=== PATIENT | female | born 1970 | race African-American/Black ===

== ENCOUNTER 2016-12-07 07:26 | Emergency (ER) | payer OTHER ==
[~2016-12-07] VITALS: Ht 172.7 cm; Wt 167.0 kg
[~2016-12-07 07:26] MED LIST: ALBU17AE26; FLUT1DIS3 IH; MONT10TA21 PO; RABE20TA17 PO
[2016-12-07] MEDS ORDERED: SODIUM CHLORIDE 0.9% 1,000 ML IV ONE (09:13)
[2016-12-07] MEDS ORDERED: ONDANSETRON HCL 4MG/2ML VIAL IV STA (09:13)
[2016-12-07] MEDS ORDERED: MECLIZINE 25MG TABLET PO ONE (09:15)
[2016-12-07 09:37] LABS: BASOPHILS % 1.4 % (0.0-2.0); EOSINOPHILS % 5.7 % (0.0-5.0); HEMATOCRIT. 37.3 % (36.0-48.0); HEMOGLOBIN. 12.1 g/dL (12.0-16.0); LYMPHOCYTES % 18.8 % (20.0-50.0); MEAN CORPUSCULAR HEMOGLOBIN 26.9 pg (28.0-32.0); MEAN PLATELET VOLUME 9.5 fl (7.4-10.4); NEUTROPHILS % 67.1 % (40.0-76.0); PLATELET 218 x1000/uL (130-400); RED CELL DISTRIBUTION WIDTH 15.7 % (11.6-14.6)
[2016-12-07 09:43] LABS: PROTHROMBIN TIME 10.4 sec (9.4-11.6)
[2016-12-07 09:53] LABS: CARBON DIOXIDE 31 mEq/L (21-32); CHLORIDE 104 mEq/L (98-107); TROPONIN I 0.05 ng/mL (0.00-0.04)
[2016-12-07 11:48] VITALS: BP 116/68
== END 2016-12-07 12:39 | disposition home or self-care (01) ==
LOC: ER 09:15
DX: H81.399 Other peripheral vertigo, unspecified ear (principal); J45.909 Unspecified asthma, uncomplicated; E11.9 Type 2 diabetes mellitus without complications; R51 Headache; R11.2 Nausea with vomiting, unspecified; Z98.890 Other specified postprocedural states
CPT/HCPCS: 36415; 70450; 71010; 80053; 82962; 83880; 84484; 85025; 85610; 93005; 96361; 96374; 99285; J2405; J7030; Z7610; J8597

== ENCOUNTER 2016-12-12 10:27 | Inpatient (IN) | payer OTHER ==
[~2016-12-12] VITALS: Ht 157.5 cm; Wt 162.4 kg
[2016-12-12] MEDS ORDERED: SODIUM CHLORIDE 0.9% 1,000 ML IV ONE (12:13)
[2016-12-12 12:31] LABS: EOSINOPHILS % 4.2 % (0.0-5.0); HEMATOCRIT. 35.8 % (36.0-48.0); HEMOGLOBIN. 11.7 g/dL (12.0-16.0); LYMPHOCYTES % 18.6 % (20.0-50.0); MEAN CORPUSCULAR HEMOGLOBIN 26.9 pg (28.0-32.0); MEAN CORPUSCULAR VOLUME 82.4 fL (81.0-99.0); MEAN PLATELET VOLUME 9.9 fl (7.4-10.4); NEUTROPHILS % 70.2 % (40.0-76.0); PLATELET 237 x1000/uL (130-400); RED BLOOD CELL COUNT 4.34 mill/uL (4.2-5.4); RED CELL DISTRIBUTION WIDTH 15.9 % (11.6-14.6)
[2016-12-12 12:38] LABS: PARTIAL THROMBOPLASTIN TIME 28.5 sec (23.4-31.0); PROTHROMBIN TIME 10.5 sec (9.4-11.6)
[2016-12-12 12:42] LABS: CARBON DIOXIDE 29 mEq/L (21-32); CHLORIDE 107 mEq/L (98-107)
[2016-12-12 12:50] LABS: CREATINE KINASE MB FRACTION 1.3 ng/mL (0.5-3.6); TROPONIN I 0.06 ng/mL (0.00-0.04)
[2016-12-12 12:53] LABS: HCG SCREEN NEGATIVE
[2016-12-12 12:56] LABS: *AMPHETAMINES SCREEN URINE NEGATIVE (NEGATIVE); *BARBITURATES SCREEN URINE NEGATIVE (NEGATIVE); *BENZODIAZEPINES SCREEN URINE NEGATIVE (NEGATIVE); *COCAINE SCREEN URINE NEGATIVE (NEGATIVE); CANNABINOID URINE SCREEN NEGATIVE (NEGATIVE); METHADONE URINE SCREEN NEGATIVE (NEGATIVE); OPIATES URINE SCREEN NEGATIVE (NEGATIVE); PHENCYCLIDINE URINE SCREEN NEGATIVE (NEGATIVE)
[2016-12-12 16:30] VITALS: BP 108/54
[2016-12-12 17:32] VITALS: BP 108/54
[2016-12-12] MEDS ORDERED: ACETAMINOPHEN 325MG TABLET PO PRN (17:45)
[2016-12-12] MEDS ORDERED: MAGNESIUM/ALUMINUM HYDROXIDE/SIMETHICONE 30ML UDC PO PRN (17:45)
[2016-12-12] MEDS ORDERED: CLONIDINE 0.1MG TABLET PO PRN (17:45)
[2016-12-12] MEDS ORDERED: NA PHOS,M-B/NA PHOS,DI-BA ENEMA 118ML PR PRN (17:45)
[2016-12-12] MEDS ORDERED: ONDANSETRON HCL 4MG/2ML VIAL IV PRN (17:45)
[2016-12-12] MEDS ORDERED: ACETAMINOPHEN 650MG/20.3ML UDC GT PRN (17:45)
[2016-12-12] MEDS ORDERED: ACETAMINOPHEN 650MG SUPP PR PRN (17:45)
[2016-12-12] MEDS: HYDROCODONE/ACETAMINOPHEN 5/325MG TABLET PO PRN (18:08)
[2016-12-12] MEDS ORDERED: BECL8.7A6 IH (18:14)
[2016-12-12] MEDS ORDERED: SEREVENT DISKUS INH (18:17)
[2016-12-12] MEDS ORDERED: NAPR-681 PO (18:18)
[2016-12-12] MEDS ORDERED: GLIM4TAB2 PO (18:19)
[2016-12-12] MEDS ORDERED: LOSA1TAB37 PO (18:19)
[2016-12-12] MEDS ORDERED: PIOG30TA10 PO (18:20)
[2016-12-12] MEDS: SODIUM CHLORIDE 0.9% 1,000 ML IV SCH (19:00)
[2016-12-12 20:00] VITALS: BP_SYST 104; BP_SYST 133; BP_SYST 141; BP_DIAS 59; BP_DIAS 88; BP_DIAS 89
[2016-12-12 20:33] LABS: CLARITY URINE CLEAR (CLEAR); COLOR URINE YELLOW (YELLOW); GLUCOSE URINE NEGATIVE (NEGATIVE); KETONES URINE NEGATIVE (NEGATIVE); LEUKOCYTE ESTERASE URINE NEGATIVE (NEGATIVE); NITRITE URINE NEGATIVE (NEGATIVE); OCCULT BLOOD URINE NEGATIVE (NEGATIVE); PH URINE 5.5 (4.5-8.0); PROTEIN URINE NEGATIVE (NEGATIVE); SPECIFIC GRAVITY URINE 1.026 (1.005-1.030)
[2016-12-12 20:40] LABS: *AMPHETAMINES SCREEN URINE NEGATIVE (NEGATIVE); *BARBITURATES SCREEN URINE NEGATIVE (NEGATIVE); *BENZODIAZEPINES SCREEN URINE NEGATIVE (NEGATIVE); *COCAINE SCREEN URINE NEGATIVE (NEGATIVE); CANNABINOID URINE SCREEN NEGATIVE (NEGATIVE); METHADONE URINE SCREEN NEGATIVE (NEGATIVE); PHENCYCLIDINE URINE SCREEN NEGATIVE (NEGATIVE)
[2016-12-12 20:41] LABS: OPIATES URINE SCREEN PRESUMTIVE POSITIVE (NEGATIVE)
[2016-12-12] MEDS: SODIUM CHLORIDE 0.9% INJ 3ML FLUSH IVF SCH (21:56)
[2016-12-12] MEDS: IPRATROPIUM/ALBUTEROL 0.5-3(2.5)MG/3ML NEB INH PRN (22:15)
[2016-12-12 23:01] LABS: TROPONIN I 0.05 ng/mL (0.00-0.04)
[2016-12-13] VITALS: BP 129/71
[2016-12-13] MEDS ORDERED: DEXTROSE 50% WATER 50ML SYRINGE IV PRN (00:15)
[2016-12-13 04:00] VITALS: BP 120/62
[2016-12-13] MEDS: HYDROCODONE/ACETAMINOPHEN 5/325MG TABLET PO PRN ×2 (04:33→12:58)
[2016-12-13] MEDS: ALBUTEROL (0.083%) 2.5MG/3ML NEB HHN SCH ×4 (04:40→21:15)
[2016-12-13] MEDS: SODIUM CHLORIDE 0.9% INJ 3ML FLUSH IVF SCH ×3 (06:04→21:30)
[2016-12-13] MEDS: PANTOPRAZOLE 40MG DR TABLET PO SCH (06:04)
[2016-12-13] MEDS: SODIUM CHLORIDE 0.9% 1,000 ML IV SCH ×2 (06:05→19:15)
[2016-12-13] MEDS: BLOOD SUGAR DIAGNOSTIC STRIP TEST SCH ×4 (06:05→21:26)
[2016-12-13 06:11] LABS: CARBON DIOXIDE 27 mEq/L (21-32); CHLORIDE 109 mEq/L (98-107); CREATINE KINASE 123 IU/L (26-192); HDL CHOLESTEROL 26 mg/dL (40-59); LDL CHOLESTEROL 77 mg/dL (5-100); TROPONIN I 0.05 ng/mL (0.00-0.04)
[2016-12-13 06:15] LABS: BASOPHILS % 1.5 % (0.0-2.0); EOSINOPHILS % 5.1 % (0.0-5.0); HEMATOCRIT. 32.9 % (36.0-48.0); HEMOGLOBIN. 10.7 g/dL (12.0-16.0); LYMPHOCYTES % 23.2 % (20.0-50.0); MEAN CORPUSCULAR HEMOGLOBIN 27.1 pg (28.0-32.0); MEAN PLATELET VOLUME 9.8 fl (7.4-10.4); MONOCYTES % 8.8 % (2.0-8.0); NEUTROPHILS % 61.4 % (40.0-76.0); PLATELET 216 x1000/uL (130-400); RED BLOOD CELL COUNT 3.96 mill/uL (4.2-5.4); RED CELL DISTRIBUTION WIDTH 15.5 % (11.6-14.6)
[2016-12-13] MEDS: INSULIN LISPRO 100 UNITS/ML SUBCUT SCH ×4 (06:16→21:00)
[2016-12-13] MEDS: GLIMEPIRIDE 4MG TABLET PO SCH (06:33)
[2016-12-13] MEDS: BUDESONIDE 0.5MG/2ML NEB HHN SCH ×2 (08:16→21:15)
[2016-12-13 08:42] VITALS: BP 129/72
[2016-12-13] MEDS ORDERED: MEDICATION NOT ON FORMULARY EA (Losartan/Hydrochlorothiazide (Losartan-Hctz 100-25 Mg Ta PO SCH (09:00)
[2016-12-13] MEDS ORDERED: BECLOMETHASONE DIPROPIONATE IH SCH (09:00)
[2016-12-13] MEDS ORDERED: NAPROXEN 500MG TABLET PO PRN (09:00)
[2016-12-13] MEDS ORDERED: SEREVENT INH SCH (09:00)
[2016-12-13] MEDS: PIOGLITAZONE 30MG TABLET PO SCH (09:29)
[2016-12-13] MEDS: HYDROCHLOROTHIAZIDE 25MG TABLET PO SCH (09:29)
[2016-12-13] MEDS: LOSARTAN POTASSIUM 100 MG TABLET PO SCH (09:30)
[2016-12-13] MEDS ORDERED: CLONIDINE 0.1MG TABLET PO PRN (11:30)
[2016-12-13] MEDS ORDERED: MECLIZINE 25MG TABLET PO PRN (11:30)
[2016-12-13 12:30] VITALS: BP_SYST 135; BP_SYST 142; BP_SYST 90; BP_DIAS 66; BP_DIAS 82; BP_DIAS 98
[2016-12-13 16:47] VITALS: BP 132/81
[2016-12-13] MEDS: MONTELUKAST SODIUM 10MG TABLET PO SCH (18:15)
[2016-12-13] MEDS: MECLIZINE 12.5MG TABLET PO SCH ×2 (18:15→21:27)
[2016-12-13] MEDS: CEFTRIAXONE 1 G PREMIX 50 ML IV SCH (18:16)
[2016-12-13] MEDS: PSEUDOEPHEDRINE HCL 30MG TABLET PO SCH (18:16)
[2016-12-13 20:00] VITALS: BP_SYST 121; BP_SYST 127; BP_SYST 133; BP_DIAS 69; BP_DIAS 86; BP_DIAS 89
[2016-12-13] MEDS: FLUTICASONE PROPIONATE 50MCG/SPRAY BOTTLE BOTHNSTRLS SCH (21:27)
[2016-12-14] VITALS: BP 118/75
[2016-12-14] MEDS: ALBUTEROL (0.083%) 2.5MG/3ML NEB HHN SCH ×4 (01:03→20:27)
[2016-12-14 04:00] VITALS: BP 131/68
[2016-12-14] MEDS: MECLIZINE 12.5MG TABLET PO SCH ×2 (05:56→14:07)
[2016-12-14] MEDS: PANTOPRAZOLE 40MG DR TABLET PO SCH (05:56)
[2016-12-14 06:09] LABS: BASOPHILS % 1.3 % (0.0-2.0); EOSINOPHILS % 4.7 % (0.0-5.0); HEMATOCRIT. 31.8 % (36.0-48.0); HEMOGLOBIN. 10.6 g/dL (12.0-16.0); LYMPHOCYTES % 22.4 % (20.0-50.0); MEAN CORPUSCULAR HEMOGLOBIN 27.2 pg (28.0-32.0); MEAN PLATELET VOLUME 9.8 fl (7.4-10.4); MONOCYTES % 6.9 % (2.0-8.0); NEUTROPHILS % 64.7 % (40.0-76.0); PLATELET 207 x1000/uL (130-400); RED BLOOD CELL COUNT 3.88 mill/uL (4.2-5.4); RED CELL DISTRIBUTION WIDTH 15.4 % (11.6-14.6)
[2016-12-14] MEDS: SODIUM CHLORIDE 0.9% INJ 3ML FLUSH IVF SCH ×3 (06:13→21:49)
[2016-12-14 06:28] LABS: CARBON DIOXIDE 27 mEq/L (21-32); CHLORIDE 105 mEq/L (98-107)
[2016-12-14 06:37] LABS: CREATINE KINASE 126 IU/L (26-192); CREATINE KINASE MB FRACTION 0.8 ng/mL (0.5-3.6); HDL CHOLESTEROL 27 mg/dL (40-59); LDL CHOLESTEROL 75 mg/dL (5-100); TROPONIN I 0.05 ng/mL (0.00-0.04)
[2016-12-14] MEDS: BLOOD SUGAR DIAGNOSTIC STRIP TEST SCH ×4 (06:45→21:35)
[2016-12-14] MEDS: INSULIN LISPRO 100 UNITS/ML SUBCUT SCH ×4 (06:46→21:00)
[2016-12-14] MEDS: GLIMEPIRIDE 4MG TABLET PO SCH (06:46)
[2016-12-14] MEDS: SODIUM CHLORIDE 0.9% 1,000 ML IV SCH ×2 (06:49→21:36)
[2016-12-14] MEDS: FLUTICASONE PROPIONATE 50MCG/SPRAY BOTTLE BOTHNSTRLS SCH ×2 (08:24→21:00)
[2016-12-14] MEDS: PIOGLITAZONE 30MG TABLET PO SCH (08:25)
[2016-12-14] MEDS: HYDROCHLOROTHIAZIDE 25MG TABLET PO SCH (08:25)
[2016-12-14] MEDS: LOSARTAN POTASSIUM 100 MG TABLET PO SCH (08:25)
[2016-12-14] MEDS ORDERED: DIPHENHYDRAMINE 50MG/ML VIAL IM NR (08:45)
[2016-12-14] MEDS ORDERED: MECLIZINE 12.5MG TABLET PO SCH (08:45)
[2016-12-14] MEDS ORDERED: MAGNESIUM 2 G PREMIX 50 ML IV NR (09:30)
[2016-12-14] MEDS: BUDESONIDE 0.5MG/2ML NEB HHN SCH (10:48)
[2016-12-14 12:00] VITALS: BP 129/70
[2016-12-14] MEDS: PSEUDOEPHEDRINE HCL 30MG TABLET PO SCH (12:23)
[2016-12-14] MEDS ORDERED: MECLIZINE 25MG TABLET PO PRN (15:15)
[2016-12-14 15:45] LABS: UCG SCREEN NEGATIVE
[2016-12-14 16:00] VITALS: BP 105/72
[2016-12-14] MEDS ORDERED: HYDROCODONE/ACETAMINOPHEN 5/325MG TABLET ONE (17:02)
[2016-12-14] MEDS: MONTELUKAST SODIUM 10MG TABLET PO SCH (17:10)
[2016-12-14] MEDS: CEFTRIAXONE 1 G PREMIX 50 ML IV SCH (17:13)
[2016-12-14] MEDS: HYDROCODONE/ACETAMINOPHEN 5/325MG TABLET PO PRN (17:30)
[2016-12-14 20:00] VITALS: BP_SYST 107; BP_SYST 122; BP_SYST 148; BP_DIAS 57; BP_DIAS 72; BP_DIAS 90
[2016-12-15] VITALS: BP 114/56
[2016-12-15 04:00] VITALS: BP 98/58
[2016-12-15] MEDS: ALBUTEROL (0.083%) 2.5MG/3ML NEB HHN SCH ×2 (04:35→14:07)
[2016-12-15] MEDS: GLIMEPIRIDE 4MG TABLET PO SCH (06:45)
[2016-12-15] MEDS: SODIUM CHLORIDE 0.9% INJ 3ML FLUSH IVF SCH ×2 (06:45→15:07)
[2016-12-15] MEDS: PANTOPRAZOLE 40MG DR TABLET PO SCH (06:45)
[2016-12-15] MEDS: BLOOD SUGAR DIAGNOSTIC STRIP TEST SCH ×3 (06:46→17:00)
[2016-12-15] MEDS: INSULIN LISPRO 100 UNITS/ML SUBCUT SCH ×2 (06:54→12:15)
[2016-12-15 08:00] VITALS: BP_SYST 115; BP_SYST 140; BP_SYST 155; BP_DIAS 110; BP_DIAS 68; BP_DIAS 96
[2016-12-15] MEDS: PSEUDOEPHEDRINE HCL 30MG TABLET PO SCH (09:28)
[2016-12-15] MEDS: PIOGLITAZONE 30MG TABLET PO SCH (09:28)
[2016-12-15] MEDS: FLUTICASONE PROPIONATE 50MCG/SPRAY BOTTLE BOTHNSTRLS SCH (09:30)
[2016-12-15] MEDS: HYDROCODONE/ACETAMINOPHEN 5/325MG TABLET PO PRN (09:38)
[2016-12-15] MEDS: IPRATROPIUM/ALBUTEROL 0.5-3(2.5)MG/3ML NEB INH PRN (09:44)
[2016-12-15] MEDS: BUDESONIDE 0.5MG/2ML NEB HHN SCH (09:45)
[2016-12-15 12:00] VITALS: BP 126/78
[2016-12-15] MEDS: SODIUM CHLORIDE 0.9% 1,000 ML IV SCH (12:05)
[2016-12-15 16:00] VITALS: BP 155/93
[2016-12-15 17:14] VITALS: BP 126/78
[2016-12-15] MEDS ORDERED: FLUT9.9S NS (17:29)
[2016-12-15] MEDS ORDERED: CLAR10 PO (17:30)
[2016-12-15] MEDS ORDERED: MECL-109 PO (17:31)
== END 2016-12-15 18:05 | disposition home or self-care (01) | DRG 48 ==
LOC: ER 12:31 → 5WST 13:32 → EDBEDREQ 13:34 → ENRESERV 13:57 → CANBEDREQ 16:12
PROVIDERS: ADMIT Family Medicine; ATTEND Family Medicine
DX: G90.8 Other disorders of autonomic nervous system (principal); I11.9 Hypertensive heart disease without heart failure; Z68.44 Body mass index [BMI] 60.0-69.9, adult; E11.9 Type 2 diabetes mellitus without complications; D64.9 Anemia, unspecified; H92.09 Otalgia, unspecified ear; J45.909 Unspecified asthma, uncomplicated; E66.01 Morbid (severe) obesity due to excess calories; E78.00 Pure hypercholesterolemia, unspecified; K21.9 Gastro-esophageal reflux disease without esophagitis; W22.01XA Walked into wall, initial encounter; R26.2 Difficulty in walking, not elsewhere classified; Z79.51 Long term (current) use of inhaled steroids; Z79.899 Other long term (current) drug therapy
CPT/HCPCS: 36415; 70220; 70450; 71010; 80053; 80061; 80305; 81003; 81025; 82550; 82553; 82962; 83735; 83880; 84443; 84484; 84703; 85025; 85610; 85730; 93005; 93306; 93880; 93970; 94640; 94660; 96360; 96361; 97162; 99285; J0696; J1200; J1815; J3475; J7030; J7611; J7620; J7626; J8597

== ENCOUNTER 2017-12-13 07:53 | Inpatient (IN) | payer SELFPAY ==
[~2017-12-13] VITALS: Ht 172.7 cm; Wt 145.1 kg
[~2017-12-13 07:53] MED LIST changes: -ALBU17AE26; +ALBU17AE26 INH; +BECL8.7A6 IH; +CLAR10 PO; -FLUT1DIS3 IH; +FLUT9.9S NS; +GLIM4TAB2 PO; +LOSA1TAB37 PO; +MECL-109 PO; +PIOG30TA10 PO; +SEREVENT DISKUS INH
[2017-12-13] MEDS ORDERED: IPRATROPIUM BROMIDE (0.02%) 0.5MG/2.5ML NEB HHN STA (08:27)
[2017-12-13] MEDS ORDERED: METHYLPREDNISOLONE SOD SUCC 125 MG/2 ML VIAL IV STA (08:27)
[2017-12-13] MEDS ORDERED: ALBUTEROL (0.083%) 2.5MG/3ML NEB HHN STA (08:27)
[2017-12-13] MEDS ORDERED: NITROGLYCERIN OINT 1GM/INCH UDPKT TD ONE (08:30)
[2017-12-13] MEDS ORDERED: ASPIRIN 81MG TABLET PO ONE (08:30)
[2017-12-13] MEDS ORDERED: FUROSEMIDE 40MG/4ML VIAL IV ONE (08:30)
[2017-12-13 09:35] LABS: BASOPHILS % 1.1 % (0.0-2.0); EOSINOPHILS % 4.7 % (0.0-5.0); HEMATOCRIT. 37.8 % (36.0-48.0); HEMOGLOBIN. 12.5 g/dL (12.0-16.0); LYMPHOCYTES % 18.9 % (20.0-50.0); MEAN CORPUSCULAR HEMOGLOBIN 26.9 pg (28.0-32.0); MEAN CORPUSCULAR VOLUME 81.7 fL (81.0-99.0); MEAN PLATELET VOLUME 10.8 fl (7.4-10.4); MONOCYTES % 5.5 % (2.0-8.0); NEUTROPHILS % 69.8 % (40.0-76.0); PLATELET 175 x1000/uL (130-400); RED BLOOD CELL COUNT 4.63 mill/uL (4.2-5.4); RED CELL DISTRIBUTION WIDTH 16.5 % (11.6-14.6)
[2017-12-13 09:40] LABS: HCG SCREEN NEGATIVE; PARTIAL THROMBOPLASTIN TIME 26.1 sec (23.4-31.0); PROTHROMBIN TIME 9.7 sec (9.1-11.1)
[2017-12-13 09:51] LABS: CHLORIDE 105 mEq/L (98-107)
[2017-12-13] MEDS ORDERED: ALBUTEROL (0.5%) 2.5MG/0.5ML NEB HHN ONE (13:45)
[2017-12-13] MEDS ORDERED: ACETAMINOPHEN 325MG TABLET PO ONE (14:30)
[2017-12-13 16:30] VITALS: BP 147/92
[2017-12-13] MEDS ORDERED: PROT40 PO (16:49)
[2017-12-13 18:17] VITALS: BP 147/92
[2017-12-13] MEDS ORDERED: ALBUTEROL (0.5%) 2.5MG/0.5ML NEB HHN PRN (18:30)
[2017-12-13] MEDS: MONTELUKAST SODIUM 10MG TABLET PO SCH (18:58)
[2017-12-13] MEDS: AZITHROMYCIN 500 MG TABLET PO SCH (18:58)
[2017-12-13] MEDS: METHYLPREDNISOLONE SOD SUCC 40 MG/ML VIAL IV SCH (19:02)
[2017-12-13 20:00] VITALS: BP 160/91
[2017-12-13] MEDS: ALBUTEROL (0.083%) 2.5MG/3ML NEB HHN SCH (20:09)
[2017-12-13] MEDS: THEOPHYLLINE ANHYDROUS 80 MG/15 ML 120ML PO SCH (21:30)
[2017-12-13] MEDS ORDERED: ACETAMINOPHEN 650MG/20.3ML UDC GT PRN (23:00)
[2017-12-13] MEDS ORDERED: HYDRALAZINE 20MG/ML VIAL IV PRN (23:00)
[2017-12-13] MEDS ORDERED: CLONIDINE 0.1MG TABLET PO PRN (23:00)
[2017-12-13] MEDS ORDERED: IPRATROPIUM/ALBUTEROL 0.5-3(2.5)MG/3ML NEB INH PRN (23:00)
[2017-12-13] MEDS ORDERED: DEXTROSE 50% WATER 50ML SYRINGE IV PRN (23:00)
[2017-12-13] MEDS ORDERED: ACETAMINOPHEN 650MG SUPP PR PRN (23:00)
[2017-12-13] MEDS ORDERED: ACETAMINOPHEN 325MG TABLET PO PRN (23:00)
[2017-12-13] MEDS ORDERED: HYDROCODONE/ACETAMINOPHEN 5/325MG TABLET PO PRN (23:00)
[2017-12-13] MEDS ORDERED: AMLODIPINE 10MG TABLET PO SCH ×2 (23:00)
[2017-12-13] MEDS ORDERED: MAGNESIUM/ALUMINUM HYDROXIDE/SIMETHICONE 30ML UDC PO PRN (23:00)
[2017-12-13] MEDS ORDERED: ONDANSETRON HCL 4MG/2ML VIAL IV PRN (23:00)
[2017-12-13] MEDS ORDERED: PIOGLITAZONE HCL 30 MG PO SCH (23:00)
[2017-12-13] MEDS ORDERED: MEDICATION NOT ON FORMULARY EA (Meclizine Hcl 25 MG) PO SCH (23:00)
[2017-12-14] VITALS (7 sets, daily range): BP systolic 109–168; BP diastolic 57–78
[2017-12-14] MEDS: ALBUTEROL (0.083%) 2.5MG/3ML NEB HHN SCH ×6 (00:12→23:39)
[2017-12-14] MEDS: MONTELUKAST SODIUM 10MG TABLET PO SCH ×3 (00:20→18:57)
[2017-12-14] MEDS: HYDROCODONE/ACETAMINOPHEN 10/325MG TABLET PO PRN (00:36)
[2017-12-14] MEDS: METHYLPREDNISOLONE SOD SUCC 40 MG/ML VIAL IV SCH ×3 (00:36→21:28)
[2017-12-14] MEDS: INSULIN LISPRO 100 UNITS/ML SUBCUT SCH ×4 (06:00→22:16)
[2017-12-14] MEDS: BLOOD SUGAR DIAGNOSTIC STRIP TEST SCH ×4 (06:01→21:00)
[2017-12-14] MEDS: SODIUM CHLORIDE 0.9% INJ 3ML FLUSH IVF SCH ×2 (06:01→14:08)
[2017-12-14] MEDS ORDERED: LIDOCAINE HCL/PF 1% 2ML VIAL ONE (07:22)
[2017-12-14 07:32] LABS: CHLORIDE 100 mEq/L (98-107)
[2017-12-14 07:36] LABS: HEMATOCRIT. 35.9 % (36.0-48.0); HEMOGLOBIN. 11.7 g/dL (12.0-16.0); MEAN CORPUSCULAR HEMOGLOBIN 26.9 pg (28.0-32.0); MEAN CORPUSCULAR VOLUME 82.3 fL (81.0-99.0); PLATELET 176 x1000/uL (130-400); RED BLOOD CELL COUNT 4.36 mill/uL (4.2-5.4); RED CELL DISTRIBUTION WIDTH 16.8 % (11.6-14.6)
[2017-12-14 07:41] LABS: LDL CHOLESTEROL 103 mg/dL (5-100)
[2017-12-14 07:42] LABS: CREATINE KINASE 88 IU/L (26-192)
[2017-12-14 07:43] LABS: HDL CHOLESTEROL 42 mg/dL (40-59)
[2017-12-14 07:46] LABS: CREATINE KINASE MB FRACTION 2.6 ng/mL (0.5-3.6)
[2017-12-14] MEDS ORDERED: AMLODIPINE 10MG TABLET PO SCH (09:00)
[2017-12-14] MEDS: GLIMEPIRIDE 4MG TABLET PO SCH (09:11)
[2017-12-14] MEDS: AMLODIPINE 5MG TABLET PO SCH (09:11)
[2017-12-14] MEDS: AZITHROMYCIN 500 MG TABLET PO SCH (09:11)
[2017-12-14] MEDS: MECLIZINE 25MG TABLET PO SCH ×3 (09:11→18:56)
[2017-12-14] MEDS: THEOPHYLLINE ANHYDROUS 80 MG/15 ML 120ML PO SCH ×2 (09:13→22:14)
[2017-12-14 11:23] LABS: PLATELET ESTIMATE NORMAL
[2017-12-14] MEDS: PIOGLITAZONE 15MG TABLET PO SCH (14:05)
[2017-12-14 15:46] LABS: BG BASE EXCESS 4.3 mmol/L (-2.0-2.0); BG CARBOXYHEMOGLOBIN 0.2 % (0.5-1.5); BG DEOXYHEMOGLOBIN 7.4 % (0.0-5.0); BG FRACTION INSPIRED OXYGEN 21; BG METHEMOGLOBIN 0.2 % (0.0-1.5); BG OXYGEN SATURATION 92.6 % (92.0-98.5); BG OXYHEMOGLOBIN 92.2 % (94.0-97.0); BG PCO2 43.8 mmHg (35.0-45.0); BG PH 7.439 (7.350-7.450); BG PO2 62.4 mmHg (75.0-100.0); BG SAMPLE SITE LEFT RADIAL; BG TOTAL HEMOGLOBIN 12.3 g/dL (12.0-18.0); BG VENT MODE ROOM AIR
[2017-12-14 16:26] LABS: CLARITY URINE CLEAR (CLEAR); COLOR URINE YELLOW (YELLOW); KETONES URINE NEGATIVE (NEGATIVE); LEUKOCYTE ESTERASE URINE NEGATIVE (NEGATIVE); NITRITE URINE NEGATIVE (NEGATIVE); OCCULT BLOOD URINE NEGATIVE (NEGATIVE); PH URINE 6.5 (4.5-8.0); PROTEIN URINE NEGATIVE (NEGATIVE); SPECIFIC GRAVITY URINE 1.037 (1.005-1.030)
[2017-12-14 16:36] LABS: *AMPHETAMINES SCREEN URINE NEGATIVE (NEGATIVE); *BARBITURATES SCREEN URINE NEGATIVE (NEGATIVE)
[2017-12-14 16:37] LABS: *BENZODIAZEPINES SCREEN URINE NEGATIVE (NEGATIVE); *COCAINE SCREEN URINE NEGATIVE (NEGATIVE); CANNABINOID URINE SCREEN NEGATIVE (NEGATIVE); METHADONE URINE SCREEN NEGATIVE (NEGATIVE); PHENCYCLIDINE URINE SCREEN NEGATIVE (NEGATIVE)
[2017-12-14 16:42] LABS: OPIATES URINE SCREEN PRESUMTIVE POSITIVE (NEGATIVE)
[2017-12-14 18:19] LABS: T4 FREE 1.1 ng/dL (0.76-1.46)
[2017-12-14 18:20] LABS: CREATINE KINASE MB FRACTION 2.4 ng/mL (0.5-3.6)
[2017-12-15] VITALS: BP 131/74
[2017-12-15 04:00] VITALS: BP 90/56
[2017-12-15] MEDS: ALBUTEROL (0.083%) 2.5MG/3ML NEB HHN SCH (04:39)
[2017-12-15] MEDS: BLOOD SUGAR DIAGNOSTIC STRIP TEST SCH ×3 (07:09→17:59)
[2017-12-15] MEDS: PIOGLITAZONE 15MG TABLET PO SCH (07:09)
[2017-12-15] MEDS: HYDROCODONE/ACETAMINOPHEN 10/325MG TABLET PO PRN (07:11)
[2017-12-15 08:00] VITALS: BP 128/72
[2017-12-15] MEDS: MECLIZINE 25MG TABLET PO SCH ×3 (09:19→17:00)
[2017-12-15] MEDS: GLIMEPIRIDE 4MG TABLET PO SCH (09:19)
[2017-12-15] MEDS: METHYLPREDNISOLONE SOD SUCC 40 MG/ML VIAL IV SCH (09:19)
[2017-12-15] MEDS: INSULIN LISPRO 100 UNITS/ML SUBCUT SCH ×3 (09:21→18:00)
[2017-12-15] MEDS: THEOPHYLLINE ANHYDROUS 80 MG/15 ML 120ML PO SCH (09:33)
[2017-12-15] MEDS ORDERED: LORATADINE 10MG TABLET PO SCH (10:45)
[2017-12-15] MEDS ORDERED: GUAIFENESIN 600MG ER TABLET PO SCH (11:00)
[2017-12-15] MEDS: AZITHROMYCIN 500 MG TABLET PO SCH (11:36)
[2017-12-15] MEDS: AMLODIPINE 5MG TABLET PO SCH (11:37)
[2017-12-15 12:00] VITALS: BP 119/62
[2017-12-15] MEDS: IPRATROPIUM/ALBUTEROL 0.5-3(2.5)MG/3ML NEB HHN SCH ×2 (12:00→16:00)
[2017-12-15 16:00] VITALS: BP 123/68
[2017-12-15 16:01] VITALS: BP 122/83
[2017-12-15] MEDS: MONTELUKAST SODIUM 10MG TABLET PO SCH (17:00)
[2017-12-15] MEDS ORDERED: FAMOTIDINE 20MG TABLET PO SCH (21:00)
== END 2017-12-15 19:19 | disposition home or self-care (01) | DRG 133 ==
LOC: ER 08:00 → 6WST 10:53 → EDBEDREQTM 10:59 → EDBEDREQ 10:59 → ENRESERV 15:06
PROVIDERS: ADMIT Family Medicine; ATTEND Family Medicine
PROC: 5A09357 Assistance with Respiratory Ventilation, Less than 24 Consecutive Hours, Continuous Positive Airway Pressure (ICD-10-PCS; principal; 2017-12-14)
DX: J96.00 Acute respiratory failure, unspecified whether with hypoxia or hypercapnia (principal); I11.0 Hypertensive heart disease with heart failure; J44.1 Chronic obstructive pulmonary disease with (acute) exacerbation; J45.901 Unspecified asthma with (acute) exacerbation; E66.01 Morbid (severe) obesity due to excess calories; I50.9 Heart failure, unspecified; E11.65 Type 2 diabetes mellitus with hyperglycemia; E78.5 Hyperlipidemia, unspecified; G47.33 Obstructive sleep apnea (adult) (pediatric); I25.10 Atherosclerotic heart disease of native coronary artery without angina pectoris; E26.9 Hyperaldosteronism, unspecified; R42 Dizziness and giddiness; Z79.84 Long term (current) use of oral hypoglycemic drugs; Z79.899 Other long term (current) drug therapy; Z68.42 Body mass index [BMI] 45.0-49.9, adult; Z79.51 Long term (current) use of inhaled steroids
CPT/HCPCS: 36415; 36600; 71045; 80053; 80061; 80305; 81003; 82375; 82550; 82553; 82805; 82962; 83036; 83880; 84439; 84443; 84484; 84703; 85025; 85379; 85610; 85730; 93005; 93970; 94640; 94660; 96374; 96375; 99285; J1815; J1940; J2920; J2930; J3490; J7611; J7620; J8597

== ENCOUNTER 2018-01-30 03:02 | Inpatient (IN) | payer BC ==
[~2018-01-30] VITALS: Ht 172.7 cm; Wt 174.6 kg
[~2018-01-30 03:02] MED LIST changes: -BECL8.7A6 IH; -CLAR10 PO; -LOSA1TAB37 PO; +PROT40 PO; -RABE20TA17 PO; -SEREVENT DISKUS INH
[2018-01-30] MEDS ORDERED: IPRATROPIUM BROMIDE (0.02%) 0.5MG/2.5ML NEB HHN STA (03:20)
[2018-01-30] MEDS ORDERED: METHYLPREDNISOLONE SOD SUCC 125 MG/2 ML VIAL IV STA (03:20)
[2018-01-30] MEDS ORDERED: FUROSEMIDE 40MG/4ML VIAL IV ONE (03:30)
[2018-01-30] MEDS: ALBUTEROL (0.083%) 2.5MG/3ML NEB HHN SCH ×2 (03:58→04:45)
[2018-01-30 04:00] LABS: BASOPHILS % 1.4 % (0.0-2.0); EOSINOPHILS % 3.2 % (0.0-5.0); HEMATOCRIT. 37.4 % (36.0-48.0); HEMOGLOBIN. 12.3 g/dL (12.0-16.0); LYMPHOCYTES % 19.2 % (20.0-50.0); MEAN CORPUSCULAR HEMOGLOBIN 27.6 pg (28.0-32.0); MEAN CORPUSCULAR VOLUME 83.8 fL (81.0-99.0); MEAN PLATELET VOLUME 9.9 fl (7.4-10.4); MONOCYTES % 7.8 % (2.0-8.0); NEUTROPHILS % 68.4 % (40.0-76.0); PLATELET 230 x1000/uL (130-400); RED BLOOD CELL COUNT 4.47 mill/uL (4.2-5.4); RED CELL DISTRIBUTION WIDTH 16.4 % (11.6-14.6)
[2018-01-30 04:12] LABS: CHLORIDE 102 mEq/L (98-107)
[2018-01-30] MEDS: SODIUM CHLORIDE 0.9% INJ 3ML FLUSH IVF SCH ×3 (06:00→20:59)
[2018-01-30] MEDS ORDERED: ONDANSETRON HCL 4MG/2ML INJ IV PRN (06:00)
[2018-01-30] MEDS ORDERED: IPRATROPIUM/ALBUTEROL 0.5-3(2.5)MG/3ML NEB INH PRN (06:00)
[2018-01-30] MEDS ORDERED: TEMAZEPAM 15MG CAPSULE PO PRN (06:00)
[2018-01-30] MEDS ORDERED: DEXTROSE 50% WATER 50ML SYRINGE IV PRN (06:00)
[2018-01-30] MEDS ORDERED: CLONIDINE 0.1MG TABLET PO PRN (06:00)
[2018-01-30] MEDS ORDERED: ACETAMINOPHEN 325MG TABLET PO PRN (06:00)
[2018-01-30] MEDS ORDERED: MECLIZINE 25MG TABLET PO PRN (06:00)
[2018-01-30] MEDS ORDERED: ENOXAPARIN 40MG/0.4ML SYR SUBCUT SCH (06:00)
[2018-01-30] MEDS ORDERED: MAGNESIUM HYDROXIDE 400MG/5ML 30ML UDC PO PRN (06:00)
[2018-01-30 10:00] VITALS: BP 139/79
[2018-01-30] MEDS ORDERED: TAMSULOSIN HCL 0.4MG SR CAPSULE PO SCH (11:00)
[2018-01-30] MEDS ORDERED: AMLODIPINE 2.5MG TABLET PO SCH (11:00)
[2018-01-30] MEDS: FLUTICASONE PROPIONATE 50MCG/SPRAY BOTTLE BOTHNSTRLS SCH ×2 (12:00→20:58)
[2018-01-30] MEDS ORDERED: PROMETHAZINE/DEXTROMETHORPHAN 6.25-15MG/5ML BOTTLE 120ML PO PRN (12:00)
[2018-01-30] MEDS: LOSARTAN POTASSIUM 100 MG TABLET PO SCH (12:03)
[2018-01-30] MEDS: GUAIFENESIN 600MG ER TABLET PO SCH ×2 (12:05→20:58)
[2018-01-30] MEDS: LORATADINE 10MG TABLET PO SCH (12:05)
[2018-01-30] MEDS: BLOOD SUGAR DIAGNOSTIC STRIP TEST SCH ×3 (12:40→20:58)
[2018-01-30] MEDS: INSULIN LISPRO 100 UNITS/ML SUBCUT SCH ×3 (13:50→20:59)
[2018-01-30] MEDS: PIOGLITAZONE 45MG TABLET PO SCH (13:50)
[2018-01-30] MEDS ORDERED: THEOPHYLLINE ANHYDROUS 80 MG/15 ML 120ML PO SCH (14:00)
[2018-01-30] MEDS ORDERED: METHYLPREDNISOLONE SOD SUCC 125 MG/2 ML VIAL IV SCH (14:00)
[2018-01-30 15:27] LABS: *AMPHETAMINES SCREEN URINE NEGATIVE (NEGATIVE); *BARBITURATES SCREEN URINE NEGATIVE (NEGATIVE); *BENZODIAZEPINES SCREEN URINE NEGATIVE (NEGATIVE); *COCAINE SCREEN URINE NEGATIVE (NEGATIVE)
[2018-01-30 15:28] LABS: CANNABINOID URINE SCREEN NEGATIVE (NEGATIVE); METHADONE URINE SCREEN NEGATIVE (NEGATIVE); OPIATES URINE SCREEN NEGATIVE (NEGATIVE); PHENCYCLIDINE URINE SCREEN NEGATIVE (NEGATIVE)
[2018-01-30 16:00] VITALS: BP 103/53
[2018-01-30] MEDS: MONTELUKAST SODIUM 10MG TABLET PO SCH (17:19)
[2018-01-30] MEDS ORDERED: METOLAZONE 10MG TABLET PO NR (19:30)
[2018-01-30 20:00] VITALS: BP 139/73
[2018-01-30] MEDS ORDERED: POTASSIUM CHLORIDE 20MEQ TABLET SR PO NR (20:00)
[2018-01-30] MEDS: FUROSEMIDE 40MG/4ML VIAL IVP SCH (20:58)
[2018-01-30] MEDS: PANTOPRAZOLE 40MG DR TABLET PO SCH (20:58)
[2018-01-30] MEDS ORDERED: FAMOTIDINE 20MG TABLET PO SCH (21:00)
[2018-01-30] MEDS: INSULIN LISPRO 100 UNITS/ML SUBCUT PRN (21:00)
[2018-01-30] MEDS: IPRATROPIUM/ALBUTEROL 0.5-3(2.5)MG/3ML NEB HHN SCH (21:09)
[2018-01-31] VITALS: BP 130/86
[2018-01-31] MEDS: IPRATROPIUM/ALBUTEROL 0.5-3(2.5)MG/3ML NEB HHN SCH ×7 (00:23→23:59)
[2018-01-31] MEDS: HYDROCODONE/ACETAMINOPHEN 5/325MG TABLET PO PRN ×2 (03:17→20:03)
[2018-01-31 04:00] VITALS: BP 116/76
[2018-01-31] MEDS: BLOOD SUGAR DIAGNOSTIC STRIP TEST SCH ×4 (06:22→20:45)
[2018-01-31] MEDS: SODIUM CHLORIDE 0.9% INJ 3ML FLUSH IVF SCH ×3 (06:31→20:46)
[2018-01-31] MEDS: INSULIN LISPRO 100 UNITS/ML SUBCUT PRN ×2 (06:32→20:42)
[2018-01-31] MEDS: INSULIN LISPRO 100 UNITS/ML SUBCUT SCH ×5 (06:32→20:43)
[2018-01-31 07:32] LABS: CHLORIDE 96 mEq/L (98-107)
[2018-01-31 07:59] LABS: HDL CHOLESTEROL 30 mg/dL (40-59); LDL CHOLESTEROL 83 mg/dL (5-100); T4 FREE 1.18 ng/dL (0.76-1.46)
[2018-01-31 08:00] VITALS: BP 119/69
[2018-01-31] MEDS: FUROSEMIDE 40MG/4ML VIAL IVP SCH (08:56)
[2018-01-31] MEDS: FLUTICASONE PROPIONATE 50MCG/SPRAY BOTTLE BOTHNSTRLS SCH ×2 (08:56→20:41)
[2018-01-31] MEDS: LORATADINE 10MG TABLET PO SCH (08:57)
[2018-01-31] MEDS: PANTOPRAZOLE 40MG DR TABLET PO SCH (08:57)
[2018-01-31] MEDS: GUAIFENESIN 600MG ER TABLET PO SCH ×2 (08:57→20:41)
[2018-01-31] MEDS: GLIMEPIRIDE 2MG TABLET PO SCH (08:57)
[2018-01-31] MEDS: PIOGLITAZONE 45MG TABLET PO SCH (08:57)
[2018-01-31] MEDS ORDERED: POTASSIUM CHLORIDE 20MEQ TABLET SR PO NR (09:00)
[2018-01-31] MEDS: LOSARTAN POTASSIUM 100 MG TABLET PO SCH (09:04)
[2018-01-31 12:00] VITALS: BP 118/63
[2018-01-31] MEDS: INSULIN GLARGINE UD 100 UNITS/ML SYR SUBCUT SCH (13:15)
[2018-01-31 16:00] VITALS: BP 119/70
[2018-01-31] MEDS: MONTELUKAST SODIUM 10MG TABLET PO SCH (18:18)
[2018-01-31] MEDS ORDERED: METOLAZONE 10MG TABLET PO NR (19:45)
[2018-01-31] MEDS ORDERED: FUROSEMIDE 40MG/4ML VIAL IVP NR (19:45)
[2018-01-31 20:00] VITALS: BP 102/60
[2018-01-31] MEDS: FAMOTIDINE 20MG TABLET PO SCH (20:41)
[2018-02-01] VITALS: BP 110/72
[2018-02-01] MEDS: IPRATROPIUM/ALBUTEROL 0.5-3(2.5)MG/3ML NEB HHN SCH ×5 (03:01→20:20)
[2018-02-01 04:00] VITALS: BP 144/96
[2018-02-01] MEDS: SODIUM CHLORIDE 0.9% INJ 3ML FLUSH IVF SCH ×3 (05:56→21:24)
[2018-02-01] MEDS: BLOOD SUGAR DIAGNOSTIC STRIP TEST SCH ×4 (07:40→21:23)
[2018-02-01 08:00] VITALS: BP 142/85
[2018-02-01] MEDS: PIOGLITAZONE 45MG TABLET PO SCH (08:41)
[2018-02-01] MEDS: GUAIFENESIN 600MG ER TABLET PO SCH ×2 (08:41→21:23)
[2018-02-01] MEDS: FUROSEMIDE 40MG/4ML VIAL IVP SCH (08:41)
[2018-02-01] MEDS: FAMOTIDINE 20MG TABLET PO SCH ×2 (08:42→21:23)
[2018-02-01] MEDS: GLIMEPIRIDE 2MG TABLET PO SCH (08:42)
[2018-02-01] MEDS: LORATADINE 10MG TABLET PO SCH (08:42)
[2018-02-01] MEDS: LOSARTAN POTASSIUM 100 MG TABLET PO SCH (08:43)
[2018-02-01] MEDS: FLUTICASONE PROPIONATE 50MCG/SPRAY BOTTLE BOTHNSTRLS SCH ×2 (08:43→21:24)
[2018-02-01] MEDS: INSULIN GLARGINE UD 100 UNITS/ML SYR SUBCUT SCH (10:58)
[2018-02-01] MEDS: INSULIN LISPRO 100 UNITS/ML SUBCUT SCH ×3 (12:22→21:37)
[2018-02-01 16:00] VITALS: BP 117/62
[2018-02-01] MEDS: ENOXAPARIN 40MG/0.4ML SYR SUBCUT SCH (18:11)
[2018-02-01] MEDS: MONTELUKAST SODIUM 10MG TABLET PO SCH (18:11)
[2018-02-01] MEDS: HYDROCODONE/ACETAMINOPHEN 5/325MG TABLET PO PRN (18:17)
[2018-02-01] MEDS ORDERED: FUROSEMIDE 40MG/4ML VIAL IVP NR (18:45)
[2018-02-01] MEDS ORDERED: METOLAZONE 10MG TABLET PO NR (18:45)
[2018-02-01 20:00] VITALS: BP 123/73
[2018-02-02] VITALS: BP 122/64
[2018-02-02] MEDS: IPRATROPIUM/ALBUTEROL 0.5-3(2.5)MG/3ML NEB HHN SCH ×5 (00:32→16:37)
[2018-02-02] MEDS: HYDROCODONE/ACETAMINOPHEN 5/325MG TABLET PO PRN ×2 (03:30→10:52)
[2018-02-02 04:00] VITALS: BP 106/70
[2018-02-02] MEDS: SODIUM CHLORIDE 0.9% INJ 3ML FLUSH IVF SCH ×2 (05:09→14:00)
[2018-02-02] MEDS: ENOXAPARIN 40MG/0.4ML SYR SUBCUT SCH ×2 (05:12→17:04)
[2018-02-02] MEDS: BLOOD SUGAR DIAGNOSTIC STRIP TEST SCH ×3 (05:47→17:13)
[2018-02-02] MEDS: LOSARTAN POTASSIUM 100 MG TABLET PO SCH (08:26)
[2018-02-02] MEDS: GLIMEPIRIDE 2MG TABLET PO SCH (08:26)
[2018-02-02] MEDS: FUROSEMIDE 40MG/4ML VIAL IVP SCH (08:26)
[2018-02-02] MEDS: FAMOTIDINE 20MG TABLET PO SCH (08:26)
[2018-02-02] MEDS: LORATADINE 10MG TABLET PO SCH (08:26)
[2018-02-02] MEDS: GUAIFENESIN 600MG ER TABLET PO SCH (08:26)
[2018-02-02] MEDS: PIOGLITAZONE 45MG TABLET PO SCH (08:26)
[2018-02-02] MEDS: INSULIN LISPRO 100 UNITS/ML SUBCUT SCH ×3 (08:28→18:19)
[2018-02-02] MEDS: FLUTICASONE PROPIONATE 50MCG/SPRAY BOTTLE BOTHNSTRLS SCH (08:30)
[2018-02-02] MEDS: INSULIN GLARGINE UD 100 UNITS/ML SYR SUBCUT SCH (10:45)
[2018-02-02 12:00] VITALS: BP 106/62
[2018-02-02 12:21] LABS: CHLORIDE 85 mEq/L (98-107)
[2018-02-02] MEDS ORDERED: POTASSIUM CHLORIDE 20MEQ TABLET SR PO SCH (13:00)
[2018-02-02] MEDS: MAGNESIUM 1 G PREMIX 100 ML IV SCH ×2 (14:21→15:36)
[2018-02-02 16:00] VITALS: BP 111/61
[2018-02-02 16:41] VITALS: BP 111/61
[2018-02-02] MEDS: MONTELUKAST SODIUM 10MG TABLET PO SCH (17:04)
== END 2018-02-02 19:40 | disposition home or self-care (01) | DRG 291 ==
LOC: ER 03:02 → 7WST 04:55 → EDBEDREQ 04:58 → EDBEDREQTM 04:58 → ENRESERV 07:01 → ER 08:08
PROVIDERS: ADMIT Internal Medicine; ATTEND Internal Medicine
DX: I50.33 Acute on chronic diastolic (congestive) heart failure (principal); J96.20 Acute and chronic respiratory failure, unspecified whether with hypoxia or hypercapnia; Z68.43 Body mass index [BMI] 50.0-59.9, adult; I11.0 Hypertensive heart disease with heart failure; J45.909 Unspecified asthma, uncomplicated; E11.65 Type 2 diabetes mellitus with hyperglycemia; E66.01 Morbid (severe) obesity due to excess calories; G47.30 Sleep apnea, unspecified; K21.9 Gastro-esophageal reflux disease without esophagitis; Z90.49 Acquired absence of other specified parts of digestive tract; Z79.899 Other long term (current) drug therapy; Z82.5 Family history of asthma and other chronic lower respiratory diseases; Z83.3 Family history of diabetes mellitus; Z80.8 Family history of malignant neoplasm of other organs or systems
CPT/HCPCS: 36415; 71045; 80048; 80061; 80305; 82962; 83735; 83880; 84439; 84443; 84484; 93005; 93306; 94640; 94660; 96374; 96375; 99291; J1650; J1815; J1940; J2405; J2930; J3475; J7611; J7620; J8597

== ENCOUNTER 2018-03-19 08:27 | Inpatient (IN) | payer BC ==
[~2018-03-19] VITALS: Ht 172.7 cm; Wt 167.6 kg
[2018-03-19] MEDS ORDERED: IPRATROPIUM BROMIDE (0.02%) 0.5MG/2.5ML NEB HHN STA ×2 (09:10→11:41)
[2018-03-19] MEDS ORDERED: ALBUTEROL (0.083%) 2.5MG/3ML NEB HHN STA ×2 (09:10→11:41)
[2018-03-19] MEDS ORDERED: METHYLPREDNISOLONE SOD SUCC 125 MG/2 ML VIAL IV STA (09:10)
[2018-03-19] MEDS ORDERED: MAGNESIUM 2 G PREMIX 50 ML IV ONE (11:45)
[2018-03-19 13:08] LABS: BASOPHILS % 0.8 % (0.0-2.0); EOSINOPHILS % 2.2 % (0.0-5.0); HEMATOCRIT. 39.7 % (36.0-48.0); HEMOGLOBIN. 13.2 g/dL (12.0-16.0); LYMPHOCYTES % 14.6 % (20.0-50.0); MEAN CORPUSCULAR HEMOGLOBIN 28.3 pg (28.0-32.0); MEAN CORPUSCULAR VOLUME 85.2 fL (81.0-99.0); MEAN PLATELET VOLUME 10.5 fl (7.4-10.4); MONOCYTES % 4.5 % (2.0-8.0); NEUTROPHILS % 77.9 % (40.0-76.0); PLATELET 205 x1000/uL (130-400); RED BLOOD CELL COUNT 4.66 mill/uL (4.2-5.4); RED CELL DISTRIBUTION WIDTH 16.1 % (11.6-14.6)
[2018-03-19 13:17] LABS: CHLORIDE 107 mEq/L (98-107)
[2018-03-19 13:18] LABS: PROTHROMBIN TIME 9.7 sec (9.1-11.1)
[2018-03-19] MEDS ORDERED: IPRATROPIUM/ALBUTEROL 0.5-3(2.5)MG/3ML NEB HHN PRN (16:30)
[2018-03-19] MEDS: MONTELUKAST SODIUM 10MG TABLET PO SCH (17:00)
[2018-03-19] MEDS: LORATADINE 10MG TABLET PO SCH (17:15)
[2018-03-19] MEDS: AZITHROMYCIN 250 MG TABLET PO SCH (17:15)
[2018-03-19 17:54] VITALS: BP 95/59
[2018-03-19] MEDS ORDERED: DEXTROSE 50% WATER 50ML SYRINGE IV PRN (18:45)
[2018-03-19] MEDS ORDERED: GLIMEPIRIDE 2MG TABLET PO NR (18:45)
[2018-03-19] MEDS: PIOGLITAZONE 15MG TABLET PO SCH (18:45)
[2018-03-19] MEDS: METHYLPREDNISOLONE SOD SUCC 40 MG/ML VIAL IV SCH (18:54)
[2018-03-19 20:00] VITALS: BP 163/81
[2018-03-19] MEDS: IPRATROPIUM/ALBUTEROL 0.5-3(2.5)MG/3ML NEB HHN SCH ×2 (20:13→23:18)
[2018-03-19] MEDS: GUAIFENESIN 600MG ER TABLET PO SCH (21:10)
[2018-03-19] MEDS: FAMOTIDINE 20MG/2ML VIAL IV SCH (21:10)
[2018-03-19] MEDS: BLOOD SUGAR DIAGNOSTIC STRIP TEST SCH (21:10)
[2018-03-19] MEDS: INSULIN LISPRO 100 UNITS/ML SUBCUT SCH (21:11)
[2018-03-20] VITALS: BP 126/87
[2018-03-20] MEDS: METHYLPREDNISOLONE SOD SUCC 40 MG/ML VIAL IV SCH ×3 (01:22→21:19)
[2018-03-20] MEDS: IPRATROPIUM/ALBUTEROL 0.5-3(2.5)MG/3ML NEB HHN SCH ×5 (02:56→22:09)
[2018-03-20 04:00] VITALS: BP 134/92
[2018-03-20] MEDS: BLOOD SUGAR DIAGNOSTIC STRIP TEST SCH ×4 (07:21→21:19)
[2018-03-20 08:00] VITALS: BP 155/98
[2018-03-20 08:18] LABS: HEMATOCRIT. 38.8 % (36.0-48.0); HEMOGLOBIN. 12.5 g/dL (12.0-16.0); MEAN CORPUSCULAR HEMOGLOBIN 28.2 pg (28.0-32.0); MEAN CORPUSCULAR VOLUME 87.4 fL (81.0-99.0); MEAN PLATELET VOLUME 10.4 fl (7.4-10.4); PLATELET 164 x1000/uL (130-400); RED BLOOD CELL COUNT 4.44 mill/uL (4.2-5.4); RED CELL DISTRIBUTION WIDTH 15.6 % (11.6-14.6)
[2018-03-20] MEDS: PIOGLITAZONE 15MG TABLET PO SCH ×2 (09:00→09:34)
[2018-03-20] MEDS: FAMOTIDINE 20MG/2ML VIAL IV SCH ×2 (09:34→21:19)
[2018-03-20] MEDS: GUAIFENESIN 600MG ER TABLET PO SCH ×2 (09:34→21:19)
[2018-03-20] MEDS: AZITHROMYCIN 250 MG TABLET PO SCH (09:35)
[2018-03-20] MEDS: LORATADINE 10MG TABLET PO SCH (09:35)
[2018-03-20] MEDS: INSULIN LISPRO 100 UNITS/ML SUBCUT SCH ×4 (09:45→21:21)
[2018-03-20 10:58] LABS: CHLORIDE 105 mEq/L (98-107)
[2018-03-20 12:34] VITALS: BP 156/99
[2018-03-20 14:03] LABS: PLATELET ESTIMATE NORMAL
[2018-03-20 16:00] VITALS: BP 124/83
[2018-03-20] MEDS ORDERED: DEXTROSE 50% WATER 50ML SYRINGE IV PRN (17:15)
[2018-03-20] MEDS: MONTELUKAST SODIUM 10MG TABLET PO SCH (17:30)
[2018-03-20] MEDS: GUAIFENESIN/CODEINE 200-20MG/10ML UDC PO PRN (18:31)
[2018-03-20 20:01] VITALS: BP 147/86
[2018-03-20] MEDS: INSULIN GLARGINE UD 100 UNITS/ML SYR SUBCUT SCH (21:22)
[2018-03-21] MEDS: IPRATROPIUM/ALBUTEROL 0.5-3(2.5)MG/3ML NEB HHN SCH ×6 (01:50→20:27)
[2018-03-21] MEDS: GUAIFENESIN/CODEINE 200-20MG/10ML UDC PO PRN ×2 (05:20→21:53)
[2018-03-21] MEDS: BLOOD SUGAR DIAGNOSTIC STRIP TEST SCH ×4 (07:20→21:53)
[2018-03-21 08:00] VITALS: BP 156/97
[2018-03-21] MEDS: PIOGLITAZONE 15MG TABLET PO SCH (09:00)
[2018-03-21] MEDS: GUAIFENESIN 600MG ER TABLET PO SCH ×2 (09:05→21:09)
[2018-03-21] MEDS: FAMOTIDINE 20MG/2ML VIAL IV SCH ×2 (09:06→21:08)
[2018-03-21] MEDS: METHYLPREDNISOLONE SOD SUCC 40 MG/ML VIAL IV SCH ×2 (09:06→21:08)
[2018-03-21] MEDS: AZITHROMYCIN 250 MG TABLET PO SCH (09:06)
[2018-03-21] MEDS: LORATADINE 10MG TABLET PO SCH (09:06)
[2018-03-21] MEDS: INSULIN LISPRO 100 UNITS/ML SUBCUT SCH ×4 (09:10→21:09)
[2018-03-21] MEDS: INSULIN GLARGINE UD 100 UNITS/ML SYR SUBCUT SCH ×2 (09:10→21:10)
[2018-03-21 12:00] VITALS: BP 151/93
[2018-03-21] MEDS ORDERED: BENZONATATE 100MG CAPSULE PO PRN (14:00)
[2018-03-21] MEDS: HYDROCODONE/ACETAMINOPHEN 5/325MG TABLET PO PRN (14:36)
[2018-03-21 16:00] VITALS: BP 151/87
[2018-03-21] MEDS: MONTELUKAST SODIUM 10MG TABLET PO SCH (18:19)
[2018-03-21 20:07] VITALS: BP 127/71
[2018-03-22] VITALS: BP 161/95
[2018-03-22] MEDS: IPRATROPIUM/ALBUTEROL 0.5-3(2.5)MG/3ML NEB HHN SCH ×4 (00:34→12:48)
[2018-03-22 04:03] VITALS: BP 151/94
[2018-03-22] MEDS: BLOOD SUGAR DIAGNOSTIC STRIP TEST SCH ×2 (07:20→12:52)
[2018-03-22 08:00] VITALS: BP 137/83
[2018-03-22] MEDS: PIOGLITAZONE 15MG TABLET PO SCH ×2 (09:00→09:01)
[2018-03-22] MEDS: FAMOTIDINE 20MG/2ML VIAL IV SCH (09:01)
[2018-03-22] MEDS: GUAIFENESIN 600MG ER TABLET PO SCH (09:01)
[2018-03-22] MEDS: AZITHROMYCIN 250 MG TABLET PO SCH (09:01)
[2018-03-22] MEDS: LORATADINE 10MG TABLET PO SCH (09:01)
[2018-03-22] MEDS: GUAIFENESIN/CODEINE 200-20MG/10ML UDC PO PRN (09:01)
[2018-03-22] MEDS: METHYLPREDNISOLONE SOD SUCC 40 MG/ML VIAL IV SCH (09:02)
[2018-03-22] MEDS: INSULIN LISPRO 100 UNITS/ML SUBCUT SCH ×2 (09:03→13:06)
[2018-03-22] MEDS: HYDROCODONE/ACETAMINOPHEN 5/325MG TABLET PO PRN (10:29)
[2018-03-22] MEDS: INSULIN GLARGINE UD 100 UNITS/ML SYR SUBCUT SCH (10:32)
[2018-03-22 12:00] VITALS: BP 139/89
== END 2018-03-22 16:30 | disposition home or self-care (01) | DRG 189 ==
LOC: ER 08:27 → 6WST 13:14 → EDBEDREQ 13:17 → EDBEDREQTM 13:17 → ENRESERV 15:42
PROVIDERS: ADMIT Internal Medicine Critical Care Medicine; ATTEND Internal Medicine Critical Care Medicine
PROC: 5A09357 Assistance with Respiratory Ventilation, Less than 24 Consecutive Hours, Continuous Positive Airway Pressure (ICD-10-PCS; principal; 2018-03-19)
PROC: 5A09357 Assistance with Respiratory Ventilation, Less than 24 Consecutive Hours, Continuous Positive Airway Pressure (ICD-10-PCS; 2018-03-20)
PROC: 5A09357 Assistance with Respiratory Ventilation, Less than 24 Consecutive Hours, Continuous Positive Airway Pressure (ICD-10-PCS; 2018-03-21)
PROC: 5A09357 Assistance with Respiratory Ventilation, Less than 24 Consecutive Hours, Continuous Positive Airway Pressure (ICD-10-PCS; 2018-03-22)
DX: J96.00 Acute respiratory failure, unspecified whether with hypoxia or hypercapnia (principal); J45.51 Severe persistent asthma with (acute) exacerbation; J98.11 Atelectasis; Z68.43 Body mass index [BMI] 50.0-59.9, adult; E11.65 Type 2 diabetes mellitus with hyperglycemia; G47.33 Obstructive sleep apnea (adult) (pediatric); E66.01 Morbid (severe) obesity due to excess calories; I11.9 Hypertensive heart disease without heart failure; J40 Bronchitis, not specified as acute or chronic; K21.9 Gastro-esophageal reflux disease without esophagitis; T38.0X5A Adverse effect of glucocorticoids and synthetic analogues, initial encounter; Z96.653 Presence of artificial knee joint, bilateral; Z79.84 Long term (current) use of oral hypoglycemic drugs; Y92.89 Other specified places as the place of occurrence of the external cause; Z79.51 Long term (current) use of inhaled steroids; Z79.899 Other long term (current) drug therapy
CPT/HCPCS: 36415; 71045; 80048; 82962; 87804; 93005; 94640; 94660; 96365; 99285; C1893; J1815; J2920; J2930; J3475; J3490; J7611; J7620

== ENCOUNTER 2019-01-29 03:39 | Emergency (ER) | payer BC ==
[~2019-01-29] VITALS: Ht 172.7 cm; Wt 155.0 kg
[~2019-01-29 03:39] MED LIST changes: +FLUT1DIS3 INH; +INSU100I28 SQ
[2019-01-29] MEDS ORDERED: ONDANSETRON HCL 4MG/2ML INJ IV STA (06:17)
[2019-01-29] MEDS ORDERED: KETOROLAC 30MG/ML VIAL IV STA (06:17)
[2019-01-29] MEDS ORDERED: MORPHINE SULFATE 4 MG/ML CPJ (NOT FOR IM USE) IV STA (06:17)
[2019-01-29] MEDS ORDERED: SODIUM CHLORIDE 0.9% 1,000 ML IV ONE (06:17)
[2019-01-29] MEDS ORDERED: DEXAMETHASONE 10 MG/ML VIAL IV ONE (06:30)
[2019-01-29 06:59] VITALS: BP 156/87
== END 2019-01-29 11:00 | disposition home or self-care (01) ==
LOC: ER 03:39
DX: M54.42 Lumbago with sciatica, left side (principal); J45.909 Unspecified asthma, uncomplicated; E11.9 Type 2 diabetes mellitus without complications; Z90.49 Acquired absence of other specified parts of digestive tract; Z98.890 Other specified postprocedural states; Z79.899 Other long term (current) drug therapy; Z79.4 Long term (current) use of insulin
CPT/HCPCS: 93971; 96374; 96375; 99284; J1100; J1885; J2270; J2405; J7030

== ENCOUNTER 2019-02-02 03:20 | Emergency (ER) | payer BC ==
[~2019-02-02] VITALS: Ht 170.2 cm; Wt 163.0 kg
[2019-02-02] MEDS ORDERED: IPRATROPIUM BROMIDE (0.02%) 0.5MG/2.5ML NEB HHN STA (04:08)
[2019-02-02] MEDS ORDERED: PREDNISONE 20MG TABLET PO STA (04:08)
[2019-02-02] MEDS ORDERED: ALBUTEROL (0.083%) 2.5MG/3ML NEB HHN STA (04:08)
[2019-02-02] MEDS ORDERED: KETOROLAC 30MG/ML VIAL IV ONE (04:15)
[2019-02-02] MEDS ORDERED: MORPHINE SULFATE 4 MG/ML CPJ (NOT FOR IM USE) IV ONE (04:15)
[2019-02-02] MEDS ORDERED: ONDANSETRON HCL 4MG/2ML INJ IV ONE (04:15)
[2019-02-02 06:42] VITALS: BP 155/95
== END 2019-02-02 07:12 | disposition home or self-care (01) ==
LOC: ER 03:20
DX: J45.901 Unspecified asthma with (acute) exacerbation (principal); M54.30 Sciatica, unspecified side; E11.9 Type 2 diabetes mellitus without complications; J45.909 Unspecified asthma, uncomplicated; E66.01 Morbid (severe) obesity due to excess calories; Z68.43 Body mass index [BMI] 50.0-59.9, adult; Z90.49 Acquired absence of other specified parts of digestive tract; Z79.899 Other long term (current) drug therapy
CPT/HCPCS: 94640; 96374; 96375; 99283; J1885; J2270; J2405; J7512; J7611; Z7610

== ENCOUNTER 2019-02-23 11:51 | Inpatient (IN) | payer BC ==
[~2019-02-23] VITALS: Ht 172.7 cm; Wt 149.7 kg
[2019-02-23] MEDS ORDERED: ALBUTEROL (0.083%) 2.5MG/3ML NEB HHN STA (12:11)
[2019-02-23] MEDS ORDERED: METHYLPREDNISOLONE SOD SUCC 125 MG/2 ML VIAL IV STA (12:11)
[2019-02-23] MEDS ORDERED: IPRATROPIUM BROMIDE (0.02%) 0.5MG/2.5ML NEB HHN STA (12:11)
[2019-02-23] MEDS ORDERED: ONDANSETRON HCL 4MG/2ML INJ IV ONE (12:15)
[2019-02-23] MEDS ORDERED: MORPHINE SULFATE 10 MG/ML CPJ IV ONE (12:15)
[2019-02-23 12:42] LABS: BASOPHILS % 1.9 % (0.0-2.0); EOSINOPHILS % 5.3 % (0.0-5.0); HEMATOCRIT. 40.4 % (36.0-48.0); HEMOGLOBIN. 13.5 g/dL (12.0-16.0); MEAN CORPUSCULAR HEMOGLOBIN 27.3 pg (28.0-32.0); MEAN CORPUSCULAR VOLUME 81.3 fL (81.0-99.0); MEAN PLATELET VOLUME 10.3 fl (7.4-10.4); MONOCYTES % 6.2 % (2.0-8.0); NEUTROPHILS % 66.6 % (40.0-76.0); PLATELET 179 x1000/uL (130-400); RED BLOOD CELL COUNT 4.97 mill/uL (4.2-5.4); RED CELL DISTRIBUTION WIDTH 15.5 % (11.6-14.6)
[2019-02-23 12:47] LABS: CHLORIDE 106 mEq/L (98-107)
[2019-02-23] MEDS ORDERED: INSULIN NPH (HUMULIN-N) 100 UNITS/ML 3ML VIAL SUBCUT ONE (13:15)
[2019-02-23] MEDS ORDERED: ENOXAPARIN 150MG/ML SYR SUBCUT ONE (13:15)
[2019-02-23] MEDS ORDERED: ASPIRIN 81MG TABLET PO ONE (13:15)
[2019-02-23] MEDS ORDERED: SODIUM CHLORIDE 0.9% 1,000 ML IV ONE (13:15)
[2019-02-23] MEDS ORDERED: INSULIN REGULAR (HUMULIN R) 300UNITS/3ML SUBCUT SCH (13:30)
[2019-02-23] MEDS ORDERED: LOSARTAN POTASSIUM 50 MG TABLET PO SCH (15:15)
[2019-02-23] MEDS ORDERED: ACETAMINOPHEN 325MG TABLET PO PRN (15:15)
[2019-02-23] MEDS ORDERED: IPRATROPIUM/ALBUTEROL 0.5-3(2.5)MG/3ML NEB HHN PRN (15:15)
[2019-02-23] MEDS ORDERED: DEXTROSE 50% WATER 50ML SYRINGE IV PRN (15:15)
[2019-02-23] MEDS ORDERED: ONDANSETRON HCL 4MG/2ML INJ IV PRN (15:15)
[2019-02-23 16:30] VITALS: BP 152/92
[2019-02-23] MEDS ORDERED: MONTELUKAST SODIUM 10MG TABLET PO SCH (17:00)
[2019-02-23 17:04] VITALS: BP 152/92
[2019-02-23] MEDS: BLOOD SUGAR DIAGNOSTIC STRIP TEST SCH ×2 (17:20→20:47)
[2019-02-23 17:28] VITALS: BP 152/92
[2019-02-23] MEDS ORDERED: PREDNISONE 20MG TABLET PO SCH (17:50)
[2019-02-23] MEDS: LOSARTAN POTASSIUM 25 MG TABLET PO SCH (18:23)
[2019-02-23] MEDS: METHYLPREDNISOLONE SOD SUCC 125 MG/2 ML VIAL IV SCH (18:24)
[2019-02-23] MEDS: INSULIN LISPRO 100 UNITS/ML SUBCUT SCH ×2 (18:54→20:46)
[2019-02-23] MEDS: FUROSEMIDE 40MG TABLET PO SCH (20:44)
[2019-02-23] MEDS: AMLODIPINE 5MG TABLET PO SCH (20:45)
[2019-02-23 20:53] VITALS: BP 152/98
[2019-02-23] MEDS: IPRATROPIUM/ALBUTEROL 0.5-3(2.5)MG/3ML NEB HHN SCH (20:54)
[2019-02-23] MEDS ORDERED: INSULIN GLARGINE UD 100 UNITS/ML SYR SUBCUT SCH (22:00)
[2019-02-23] MEDS: HYDROCODONE/ACETAMINOPHEN 5/325MG TABLET PO PRN (22:46)
[2019-02-23] MEDS: CLONIDINE 0.1MG TABLET PO PRN (23:41)
[2019-02-24] MEDS: METHYLPREDNISOLONE SOD SUCC 125 MG/2 ML VIAL IV SCH ×4 (00:01→18:17)
[2019-02-24 00:08] VITALS: BP 171/115
[2019-02-24] MEDS: IPRATROPIUM/ALBUTEROL 0.5-3(2.5)MG/3ML NEB HHN SCH ×6 (00:11→21:25)
[2019-02-24 03:26] LABS: CLARITY URINE CLEAR (CLEAR); COLOR URINE YELLOW (YELLOW); KETONES URINE NEGATIVE (NEGATIVE); LEUKOCYTE ESTERASE URINE NEGATIVE (NEGATIVE); NITRITE URINE NEGATIVE (NEGATIVE); OCCULT BLOOD URINE NEGATIVE (NEGATIVE); PROTEIN URINE NEGATIVE (NEGATIVE); SPECIFIC GRAVITY URINE 1.011 (1.005-1.030); UROBILINOGEN URINE 0.2 E.U./dL (0.2-1.0)
[2019-02-24 03:46] LABS: *AMPHETAMINES SCREEN URINE NEGATIVE (NEGATIVE); *BARBITURATES SCREEN URINE NEGATIVE (NEGATIVE); *BENZODIAZEPINES SCREEN URINE NEGATIVE (NEGATIVE); *COCAINE SCREEN URINE NEGATIVE (NEGATIVE); METHADONE URINE SCREEN NEGATIVE (NEGATIVE)
[2019-02-24 03:47] LABS: CANNABINOID URINE SCREEN NEGATIVE (NEGATIVE); OPIATES URINE SCREEN PRESUMTIVE POSITIVE (NEGATIVE); PHENCYCLIDINE URINE SCREEN NEGATIVE (NEGATIVE)
[2019-02-24 04:00] VITALS: BP 146/95
[2019-02-24] MEDS ORDERED: METHOCARBAMOL 750MG TABLET PO SCH (06:00)
[2019-02-24] MEDS: HYDROCODONE/ACETAMINOPHEN 5/325MG TABLET PO PRN ×2 (06:08→21:24)
[2019-02-24] MEDS: INSULIN LISPRO 100 UNITS/ML SUBCUT SCH ×6 (06:28→21:21)
[2019-02-24 06:58] LABS: BASOPHILS % 0.3 % (0.0-2.0); HEMATOCRIT. 39.2 % (36.0-48.0); HEMOGLOBIN. 12.9 g/dL (12.0-16.0); LYMPHOCYTES % 7.9 % (20.0-50.0); MEAN CORPUSCULAR HEMOGLOBIN 27.2 pg (28.0-32.0); MEAN CORPUSCULAR VOLUME 82.4 fL (81.0-99.0); MEAN PLATELET VOLUME 11.1 fl (7.4-10.4); MONOCYTES % 1.8 % (2.0-8.0); PLATELET 196 x1000/uL (130-400); RED BLOOD CELL COUNT 4.76 mill/uL (4.2-5.4); RED CELL DISTRIBUTION WIDTH 15.5 % (11.6-14.6)
[2019-02-24 07:00] LABS: CHLORIDE 102 mEq/L (98-107)
[2019-02-24 07:12] LABS: LDL CHOLESTEROL 92 mg/dL (5-100)
[2019-02-24 07:15] LABS: HDL CHOLESTEROL 31 mg/dL (40-59)
[2019-02-24] MEDS: BLOOD SUGAR DIAGNOSTIC STRIP TEST SCH ×4 (07:20→21:22)
[2019-02-24 08:00] VITALS: BP 151/93
[2019-02-24] MEDS: AMLODIPINE 5MG TABLET PO SCH ×2 (09:14→21:23)
[2019-02-24] MEDS: LOSARTAN POTASSIUM 25 MG TABLET PO SCH ×2 (09:14→21:23)
[2019-02-24] MEDS: FUROSEMIDE 40MG TABLET PO SCH ×2 (09:14→21:22)
[2019-02-24 12:00] VITALS: BP 163/110
[2019-02-24] MEDS ORDERED: INSULIN GLARGINE UD 100 UNITS/ML SYR SUBCUT NR (12:00)
[2019-02-24] MEDS: CLONIDINE 0.1MG TABLET PO PRN (12:47)
[2019-02-24 16:00] VITALS: BP 134/74
[2019-02-24 20:00] VITALS: BP 125/78
[2019-02-24] MEDS: INSULIN GLARGINE UD 100 UNITS/ML SYR SUBCUT SCH (21:22)
[2019-02-25] VITALS (7 sets, daily range): BP systolic 111–159; BP diastolic 54–99
[2019-02-25] MEDS: METHYLPREDNISOLONE SOD SUCC 125 MG/2 ML VIAL IV SCH ×2 (00:24→06:29)
[2019-02-25] MEDS: IPRATROPIUM/ALBUTEROL 0.5-3(2.5)MG/3ML NEB HHN SCH ×6 (01:17→20:00)
[2019-02-25] MEDS: INSULIN LISPRO 100 UNITS/ML SUBCUT SCH ×7 (06:31→22:39)
[2019-02-25] MEDS ORDERED: GLIPIZIDE 5MG TABLET PO SCH (07:20)
[2019-02-25] MEDS: BLOOD SUGAR DIAGNOSTIC STRIP TEST SCH ×4 (07:20→21:00)
[2019-02-25 07:26] LABS: HEMATOCRIT. 37.5 % (36.0-48.0); HEMOGLOBIN. 12.3 g/dL (12.0-16.0); MEAN CORPUSCULAR HEMOGLOBIN 26.9 pg (28.0-32.0); MEAN CORPUSCULAR VOLUME 81.9 fL (81.0-99.0); MEAN PLATELET VOLUME 10.9 fl (7.4-10.4); PLATELET 186 x1000/uL (130-400); RED BLOOD CELL COUNT 4.58 mill/uL (4.2-5.4)
[2019-02-25 07:29] LABS: CHLORIDE 99 mEq/L (98-107)
[2019-02-25] MEDS: AMLODIPINE 5MG TABLET PO SCH ×2 (09:23→21:56)
[2019-02-25] MEDS: FUROSEMIDE 40MG TABLET PO SCH ×2 (09:25→21:56)
[2019-02-25] MEDS: LOSARTAN POTASSIUM 25 MG TABLET PO SCH (09:25)
[2019-02-25] MEDS: ENOXAPARIN 40MG/0.4ML SYR SUBCUT SCH ×2 (09:27→21:56)
[2019-02-25] MEDS: INSULIN GLARGINE UD 100 UNITS/ML SYR SUBCUT SCH ×2 (11:13→22:40)
[2019-02-25 12:04] LABS: PLATELET ESTIMATE NORMAL
[2019-02-25] MEDS ORDERED: MAGNESIUM 1 G PREMIX 100 ML IV SCH (15:00)
[2019-02-25] MEDS: GUAIFENESIN-DM 200MG-20MG/10ML UDC PO PRN (17:03)
[2019-02-25] MEDS: METHYLPREDNISOLONE SOD SUCC 40 MG/ML VIAL IV SCH (17:03)
[2019-02-25] MEDS: GLIPIZIDE 5MG TABLET PO SCH (17:04)
[2019-02-25] MEDS: HYDROCODONE/ACETAMINOPHEN 5/325MG TABLET PO PRN (21:55)
[2019-02-25] MEDS: LOSARTAN POTASSIUM 50 MG TABLET PO SCH (21:56)
[2019-02-26] VITALS: BP 161/87
[2019-02-26] MEDS: ACETYLCYSTEINE 100MG/ML 10% VIAL 4ML INH SCH ×2 (00:14→08:09)
[2019-02-26] MEDS: IPRATROPIUM/ALBUTEROL 0.5-3(2.5)MG/3ML NEB HHN SCH ×4 (00:15→11:53)
[2019-02-26 04:00] VITALS: BP 142/78
[2019-02-26] MEDS: BLOOD SUGAR DIAGNOSTIC STRIP TEST SCH ×2 (07:01→13:12)
[2019-02-26] MEDS: INSULIN LISPRO 100 UNITS/ML SUBCUT SCH ×4 (07:02→13:22)
[2019-02-26 08:00] VITALS: BP 149/97
[2019-02-26] MEDS: LOSARTAN POTASSIUM 50 MG TABLET PO SCH (08:32)
[2019-02-26] MEDS: GLIPIZIDE 5MG TABLET PO SCH (08:32)
[2019-02-26] MEDS: FUROSEMIDE 40MG TABLET PO SCH (08:32)
[2019-02-26] MEDS: AMLODIPINE 5MG TABLET PO SCH (08:32)
[2019-02-26] MEDS: ENOXAPARIN 40MG/0.4ML SYR SUBCUT SCH (08:33)
[2019-02-26] MEDS: METHYLPREDNISOLONE SOD SUCC 40 MG/ML VIAL IV SCH (08:33)
[2019-02-26] MEDS: HYDROCODONE/ACETAMINOPHEN 5/325MG TABLET PO PRN (08:34)
[2019-02-26] MEDS: GUAIFENESIN-DM 200MG-20MG/10ML UDC PO PRN (08:49)
[2019-02-26] MEDS: INSULIN GLARGINE UD 100 UNITS/ML SYR SUBCUT SCH (09:40)
[2019-02-26 12:00] VITALS: BP 151/106
[2019-02-26] MEDS ORDERED: P20 MT (12:00)
[2019-02-26] MEDS ORDERED: HYDR-4001 MT ×2 (12:00)
[2019-02-26] MEDS ORDERED: GUAI600T26 MT (12:00)
[2019-02-26] MEDS ORDERED: FURO-151 MT (12:00)
[2019-02-26] MEDS ORDERED: GLIPIZIDE 10MG TABLET PO SCH (17:20)
[2019-02-26] MEDS ORDERED: INSULIN GLARGINE UD 100 UNITS/ML SYR SUBCUT SCH (22:00)
== END 2019-02-26 15:20 | disposition home or self-care (01) | DRG 291 ==
LOC: ER 11:51 → 6WST 14:28 → EDBEDREQ 14:32 → ENRESERV 15:23
PROVIDERS: ADMIT Family Medicine Adult Medicine; ATTEND Family Medicine Adult Medicine
PROC: 5A09357 Assistance with Respiratory Ventilation, Less than 24 Consecutive Hours, Continuous Positive Airway Pressure (ICD-10-PCS; principal; 2019-02-24)
PROC: 5A09357 Assistance with Respiratory Ventilation, Less than 24 Consecutive Hours, Continuous Positive Airway Pressure (ICD-10-PCS; 2019-02-25)
PROC: 5A09357 Assistance with Respiratory Ventilation, Less than 24 Consecutive Hours, Continuous Positive Airway Pressure (ICD-10-PCS; 2019-02-26)
DX: I11.0 Hypertensive heart disease with heart failure (principal); J96.00 Acute respiratory failure, unspecified whether with hypoxia or hypercapnia; J45.901 Unspecified asthma with (acute) exacerbation; E66.2 Morbid (severe) obesity with alveolar hypoventilation; Z68.43 Body mass index [BMI] 50.0-59.9, adult; I50.33 Acute on chronic diastolic (congestive) heart failure; I16.0 Hypertensive urgency; I45.10 Unspecified right bundle-branch block; E11.65 Type 2 diabetes mellitus with hyperglycemia; M54.30 Sciatica, unspecified side; Z82.49 Family history of ischemic heart disease and other diseases of the circulatory system; Z90.49 Acquired absence of other specified parts of digestive tract; Z79.4 Long term (current) use of insulin; Z79.899 Other long term (current) drug therapy; Z71.3 Dietary counseling and surveillance
CPT/HCPCS: 36415; 71045; 80048; 80061; 80305; 81003; 82962; 83036; 83735; 83880; 84484; 93005; 93306; 94640; 94660; 99291; J1650; J1815; J2270; J2405; J2920; J2930; J3475; J7030; J7608; J7611; J7620

== ENCOUNTER 2021-06-06 08:08 | Emergency (ER) | payer BC, OTHER ==
[~2021-06-06] VITALS: Ht 170.2 cm; Wt 158.0 kg
[~2021-06-06 08:08] MED LIST changes: +FURO-151 MT; +FURO80TA87 PO; -GLIM4TAB2 PO; +GLIM4TAB36 PO; +GUAI600T26 MT; +HYDR-4001 MT; -MECL-109 PO; +MECL-159 PO; +P20 MT
[2021-06-06] MEDS ORDERED: METHYLPREDNISOLONE SOD SUCC 125 MG/2 ML VIAL IV STA (08:32)
[2021-06-06] MEDS ORDERED: ALBUTEROL (0.083%) 2.5MG/3ML NEB HHN STA (08:32)
[2021-06-06] MEDS ORDERED: IPRATROPIUM BROMIDE (0.02%) 0.5MG/2.5ML NEB HHN STA (08:32)
[2021-06-06] MEDS ORDERED: ACETAMINOPHEN WITH CODEINE 300/30MG TABLET PO ONE (09:15)
[2021-06-06 10:00] VITALS: BP 169/98
[2021-06-06] MEDS ORDERED: TOPUD PO (10:05)
[2021-06-06] MEDS ORDERED: P50 PO (10:06)
== END 2021-06-06 10:34 | disposition home or self-care (01) ==
LOC: ER 08:08
DX: T59.811A Toxic effect of smoke, accidental (unintentional), initial encounter (principal); J45.901 Unspecified asthma with (acute) exacerbation; E11.9 Type 2 diabetes mellitus without complications; J45.909 Unspecified asthma, uncomplicated; Z90.49 Acquired absence of other specified parts of digestive tract; Z79.899 Other long term (current) drug therapy; Z79.4 Long term (current) use of insulin; Y92.018 Other place in single-family (private) house as the place of occurrence of the external cause
CPT/HCPCS: 71045; 82962; 94640; 99283; J2930; Z7610

== ENCOUNTER 2022-01-05 05:47 | Emergency (ER) | payer BC ==
[~2022-01-05] VITALS: Ht 170.2 cm; Wt 113.0 kg
[~2022-01-05 05:47] MED LIST changes: +P50 PO; +TOPUD PO
[2022-01-05] MEDS ORDERED: KETOROLAC 60MG/2ML VIAL IM ONE (06:30)
[2022-01-05] MEDS ORDERED: IBUP-2029 MT (06:35)
[2022-01-05] MEDS ORDERED: CYCL10TA21 MT (06:35)
[2022-01-05 07:07] VITALS: BP 184/114
[2022-01-05] MEDS ORDERED: ACETAMINOPHEN 325MG TABLET PO ONE (09:45)
== END 2022-01-05 18:19 | disposition home or self-care (01) ==
LOC: ER 05:47
DX: M54.16 Radiculopathy, lumbar region (principal); G89.29 Other chronic pain; E11.9 Type 2 diabetes mellitus without complications; J45.909 Unspecified asthma, uncomplicated
CPT/HCPCS: 96372; 99283; J1885

== ENCOUNTER 2022-01-05 12:55 | Emergency (ER) | payer BC ==
[~2022-01-05] VITALS: Ht 165.1 cm; Wt 98.0 kg
[~2022-01-05 12:55] MED LIST changes: +CYCL10TA21 MT; +IBUP-2029 MT
[2022-01-05] MEDS ORDERED: LIDOCAINE 5% PATCH TOP SCH (14:00)
[2022-01-05] MEDS ORDERED: OXYCODONE HCL/ACETAMINOPHEN 5/325MG TABLET PO ONE (14:00)
[2022-01-05] MEDS ORDERED: METHOCARBAMOL 500MG TABLET PO ONE (14:00)
[2022-01-05] MEDS ORDERED: IBUPROFEN 600MG TABLET PO ONE (14:00)
[2022-01-05 15:37] VITALS: BP 157/93
== END 2022-01-05 18:19 | disposition home or self-care (01) ==
LOC: ER 13:07
DX: M54.50 Low back pain, unspecified (principal); E11.9 Type 2 diabetes mellitus without complications; I10 Essential (primary) hypertension; J45.909 Unspecified asthma, uncomplicated; G47.30 Sleep apnea, unspecified; E66.01 Morbid (severe) obesity due to excess calories; Z68.36 Body mass index [BMI] 36.0-36.9, adult; Z79.4 Long term (current) use of insulin
CPT/HCPCS: 99284